=== PATIENT | female | born 1995 | race Caucasian/White ===

== ENCOUNTER 2022-01-30 16:36 | Emergency (ER) | payer BC, SELFPAY ==
[2022-01-30 16:37] VITALS: BP 133/96; PULSE 89; RESP 16; TEMP 37.2; O2SAT 97; BMI 35.4
[2022-01-30 16:40] VITALS: BP 133/96; PULSE 89; RESP 16; TEMP 37.2; O2SAT 97
--- NOTE | 2022-01-30 18:16 | CM.ED ---
Social Work Note Reason for Referral: Case Find, No PCP SW met with pt and introduced self. Pt is alert and orientated. Pt confirms she has no PCP, states she was going to one but wants to switch. SW provided pt with PCP list. Goldie Lang [employer], [employer]
--- NOTE | 2022-01-30 18:30 | EDS_ITS ---
HPI HPI - GI History of Present Illness Chief Complaint: Nausea/Vomiting Informant: patient Abdominal Pain/Flank Pain Onset: Today Context: Sudden Onset Timing: Intermittent Quality: Cramping and Sharp Location: Diffuse Worsened by: Nothing Relieved by: Nothing Nausea/Vomiting/Emesis GI Symptom: Positive for Nausea and Vomiting Diarrhea/Melena/Hematochezia GI Symptom: Positive for Diarrhea; Negative for Melena and Hematochezia Associated Symptoms Associated Symptoms: Negative for Dysuria, Frequency and Hematuria Narrative Narrative: Patient presents with nausea, vomiting, and abdominal pain that began today. Patient states she has been vomiting up undigested food and stomach contents. Patient denies any hematemesis or coffee-ground emesis. Patient admits to some watery diarrhea. Patient denies any melena or hematochezia. Patient admits to some cramping intermittent abdominal pain. Patient states it is diffuse in her abdomen. Patient states nothing makes it better nothing makes it worse. Patient denies any dysuria, hematuria, or frequency. Patient states her last menstrual period was 1 week ago. Patient also admits to smoking marijuana occasionally. [facility] Medical History Anxiety Arthritis Depression Patella fracture Polycystic ovarian syndrome Substance abuse Home Medications cephalexin 500 mg PO Q6 #20 capsule 01/30/22 [Rx Last Taken Unknown] trazodone 50 mg PO QHS 01/30/22 [History Last Taken Unknown] venlafaxine [Effexor] 75 mg PO DAILY 01/30/22 [History Last Taken Unknown] Allergy/AdvReac Type Severity Reaction Status Date / Time No Known Allergies Allergy Verified 01/30/22 16:40 Surgical History History of D&C Social History Smoking Status: Never smoker ROS ROS ED Constitutional Constitutional ED: Denies chills or fever(s) Eyes Eyes: Denies blurry vision or change in vision ENT ENT ED: Reports sore throat; Denies rhinorrhea Cardiovascular Cardiovascular: Denies chest pain or palpitations Respiratory/Chest Respiratory/Chest: Denies cough or dyspnea Gastrointestinal Gastrointestinal: Reports abdominal pain, diarrhea, nausea and vomiting Genitourinary Genitourinary ED: Denies dysuria or hematuria Musculoskeletal Musculoskeletal: Denies back pain or neck pain Integumentary Denies abscess or rash Neurologic Neurologic: Reports headache(s); Denies weakness Allergic/Immunologic Allergic/Immunologic ED: Denies mouth swelling or urticaria EXAM Physical Exam Const Vital Signs: 01/30/22 16:37 01/30/22 16:40 01/30/22 20:15 Temperature 99 F 99 F Temperature Source Temporal Temporal Pulse Rate 89 89 107 H Respiratory Rate 16 16 15 Blood Pressure 133/96 H 133/96 H 129/84 H Blood Pressure Mean 108 108 99 Pulse Ox 97 97 97 Oxygen Delivery Method Room Air Room Air Room Air Positive well nourished, well developed and obese General Appearance ED: well developed and NAD Nutritional Appearance: obese HEENT Reports moist mucous membranes Neck supple and no JVD Resp normal respiratory effort and clear to auscultation bilaterally Cardio regular rate and regular rhythm GI Auscultation: normoactive bowel sounds Palpation: soft and tender epigastric, LLQ, RLQ, LUQ, RUQ, periumbilical and suprapubic; Negative for guarding or rebound tenderness present Extremity full ROM General Extremety ED: Negative for edema General Extremity: Negative for edema Neuro CN's II-XII intact bilaterally, moves all extremities and no sensory deficits noted Sensorium / Orientation: alert, oriented to person, oriented to place and oriented to time Motor Exam: strength 5/5 throughout Psych mental status grossly normal MDM MDM MDM Narrative Medical decision making narrative: Patient was given IV fluids, morphine, and Zofran. CBC shows a mild leukocytosis of 14.1. Comprehensive metabolic profile was within normal limits. Lipase was normal. Serum hCG was negative. Urinalysis shows leukocyte esterase of 500 with 25-50 white blood cells and 3+ bacteria. There were positive nitrates. Urine culture was ordered. Patient was given a dose of Keflex here. Patient was given a prescription for Keflex. Patient was instructed to drink plenty of fluids. Patient was instructed to follow-up with her primary care physician in 3 to 5 days for reevaluation. Patient understood and was agreeable with the plan. All questions were answered. Lab Data Attestation: I reviewed the patient's lab results. Labs: Laboratory Results - last 24 hr 01/30/22 01/30/22 01/30/22 19:20 19:20 19:20 WBC 14.1 H RBC 5.22 Hgb 14.3 Hct 43.8 MCV 83.9 MCH 27.4 MCHC 32.6 RDW Std Deviation 40.8 RDW Coeff of Justo 13.2 Plt Count 301 MPV 10.4 Immature Gran % (Auto) 0.400 Neut % (Auto) 79.3 H Lymph % (Auto) 17.8 L [place] % (Auto) 2.3 Eos % (Auto) 0.1 Baso % (Auto) 0.1 Absolute Neuts (auto) 11.2 H Absolute Lymphs (auto) 2.51 Nucleated RBC % 0 Sodium 136 Potassium 4.6 Chloride 107 Carbon Dioxide 22.0 Anion Gap 7 BUN 7 Creatinine 0.66 Estim Creat Clear Calc 132.59 Est GFR (MDRD) Af Amer 140 Est GFR (MDRD) Non-Af 116 BUN/Creatinine Ratio 10.6 Glucose 93 Calcium 9.4 Total Bilirubin 0.30 AST 22 ALT 35 Alkaline Phosphatase 119 H Total Protein 8.2 Albumin 3.6 Globulin 4.6 H Albumin/Globulin Ratio 0.8 L Lipase 67 L Serum , Qual NEGATIVE Urine Color Urine Clarity Urine pH Ur Specific [place] Urine Protein Urine Glucose (UA) Urine Ketones Urine Occult Blood Urine Nitrite Urine Bilirubin Urine Urobilinogen Ur Leukocyte Esterase Urine RBC Urine WBC Ur Squamous Epith Cells Urine Bacteria Urine Mucus 01/30/22 19:34 WBC RBC Hgb Hct MCV MCH MCHC RDW Std Deviation RDW Coeff of [place] Plt Count MPV Immature Gran % (Auto) Neut % (Auto) Lymph % (Auto) [place] % (Auto) Eos % (Auto) Baso % (Auto) Absolute Neuts (auto) Absolute Lymphs (auto) Nucleated RBC % Sodium Potassium Chloride Carbon Dioxide Anion Gap BUN Creatinine Estim Creat Clear Calc Est GFR (MDRD) Af Amer Est GFR (MDRD) Non-Af BUN/Creatinine Ratio Glucose Calcium Total Bilirubin AST ALT Alkaline Phosphatase Total Protein Albumin Globulin Albumin/Globulin Ratio Lipase Serum , Qual Urine Color Yellow Urine Clarity Cloudy Urine pH 6.0 Ur Specific [place] 1.015 Urine Protein 15 H Urine Glucose (UA) Normal Urine Ketones Negative Urine Occult Blood 10 H Urine Nitrite Positive H Urine Bilirubin Negative Urine Urobilinogen Normal Ur Leukocyte Esterase 500 H Urine RBC 0 SEEN Urine WBC 25-50 SEEN Ur Squamous Epith Cells 5-10 SEEN Urine Bacteria 3+ Urine Mucus 0 SEEN Discharge Plan Triage Chief Complaint: Nausea/Vomiting ED Provider: Vamshi Darby Dx/Rx/DC Orders Clinical Impression: Urinary tract infection, Abdominal pain Instructions: ED CYSTITIS Female Adult Prescriptions: New cephalexin [cephalexin] 500 MG capsule 500 mg PO Q6 Qty: 20 RF: 0 No Action venlafaxine [Effexor] 75 mg Tablet 75 mg PO DAILY RF: 0 trazodone 50 mg Tablet 50 mg PO QHS RF: 0 Primary Care Provider: Care Physician,No Primary Referrals: Lynn Toro MD [STAFF PHYSICIAN] - 3-5 Days Care Physician,No Primary [Primary Care Provider] - Disposition Disposition: Home, Self Care
[2022-01-30] MEDS: 0.9% Normal Saline 1,000 ML 1000 ML IV (19:24)
[2022-01-30] MEDS: Ondansetron 4 MG/2 ML Vial IV (19:25)
[2022-01-30 19:30] LABS: Absolute Lymphocyte Count 2.51 X10^3/uL (0.83-4.51); Absolute Neutrophil Count 11.2 X10^3/uL (2.0-7.7); Basophil# 0.02 X10^3/uL; Basophil% 0.1 % (0-1); Eosinophil# 0.01 X10^3/uL; Eosinophils% 0.1 % (0-5); Hematocrit 43.8 % (37-47); Hemoglobin 14.3 g/dL (12.0-15.0); Lymphocyte # 2.51 X10^3/ul (0.83-4.51); Lymphocyte % 17.8 % (19-41); Mean Corp Hgb Conc 32.6 g/dL (32-36); Mean Corpuscular Hgb 27.4 pg (27.0-32.0); Mean Corpuscular Volume 83.9 fL (81-99); Mean Platelet Vol. 10.4 fl (6.2-12.0); Monocyte# 0.32 X10^3/uL; Monocyte% 2.3 % (0-10); NRBC Flagged by Analyzer 0 % (0-5); Neutrophil # 11.18 X10^3/uL (2.7-7.7); Neutrophil % 79.3 % (47-70); Platelet Count 301 K/mm3 (150-450); RBC Distribution Width CV 13.2 % (11.6-14.6); RBC Distribution Width SD 40.8 fl (35.1-43.9); Red Blood Count 5.22 M/mm3 (4.2-5.4); White Blood Count 14.1 K/mm3 (4.4-11.0)
[2022-01-30 19:39] LABS: Internal QC Validated? YES +Cl - CLEAR BKGD; Pregnancy, Serum, hCG Quali. NEGATIVE Negative
[2022-01-30 19:46] LABS: ALB/GLOB Ratio 0.8 RATIO (0.9-2.4); AST(SGOT) 22 U/L (15-37); Alanine Aminotransfer ALT/SGPT 35 U/L (13-56); Albumin, Serum 3.6 g/dL (3.2-5.0); Alkaline Phosphatase 119 U/L (45-117); Anion Gap 7 (5-15); BUN 7 mg/dL (7-18); BUN/Creat Ratio 10.6 RATIO (10-20); Calcium,Total 9.4 mg/dL (8.5-10.1); Chloride 107 mmol/L (98-107); Creatinine, Serum 0.66 mg/dL (0.55-1.02); EST Glomerular Filtration Rate 116 mL/min (>60); Est Glom Filt Rate - Afr Amer 140 mL/min (>60); Estimated Creatinine Clearance 132.59 ml/min; Globulin 4.6 g/dL (2.2-4.2); Glucose 93 mg/dL (74-106); Lipase 67 U/L (73-393); Potassium 4.6 mmol/L (3.5-5.1); Protein, Total 8.2 g/dL (6.4-8.2); Sodium Level 136 mmol/L (136-145)
[2022-01-30 19:56] LABS: Mucous, Urine 0 SEEN /hpf (<or=2+); Red Blood Cells-Urine 0 SEEN /hpf (0-5)
[2022-01-30 20:02] LABS: Color, Urine Yellow (Yellow); Glucose, Dipstick Normal (Normal); Ketone-Dipstick Negative (Negative); Leukocyte Esterase-Dipstick 500 /ul (Negative); Nitrite-Dipstick Positive (Negative); Occult Blood-Urine 10 /ul (Negative); Protein-Dipstick 15 mg/dl (Negative); Specific Gravity, Urine 1.015 (1.002-1.030); Urine Bilirubin Dipstick Negative (Negative); Urine Clarity Cloudy (Clear); Urine Urobilinogen Normal (Normal)
[2022-01-30 20:08] LABS: White Blood Cells 25-50 SEEN /hpf (0-5)
[2022-01-30 20:09] LABS: Bacteria 3+ /hpf (None Seen); Squamous Epithelial Cells - UA 5-10 SEEN /hpf (5-10)
[2022-01-30 20:15] VITALS: BP 129/84; PULSE 107; RESP 15; O2SAT 97
[2022-01-30] MEDS: Cephalexin 500 MG Capsule PO (20:50)
== END 2022-01-30 20:55 | disposition home or self-care (01) ==
PROVIDERS: Emergency Provider Emergency Medicine; Visit Provider Emergency Medicine
DX: N39.0 Urinary tract infection, site not specified (principal); R11.2 Nausea with vomiting, unspecified; R19.7 Diarrhea, unspecified; R10.84 Generalized abdominal pain; F32.A Depression, unspecified; F41.9 Anxiety disorder, unspecified; M19.90 Unspecified osteoarthritis, unspecified site; E66.9 Obesity, unspecified; Z79.899 Other long term (current) drug therapy
CPT/HCPCS: 80053; 81001; 83690; 84703; 85025; 87077; 87086; 87088; 87186; 96361; 96374; 96375; 99284; J7030; A4216; J2405

== ENCOUNTER → 2022-03-13 | Outpatient (CLI) | payer BC, SELFPAY ==
[2022-03-13 12:52] LABS: Erythrocyte Sedimentation Rate 22 mm/hr (0-30)
[2022-03-13 12:54] LABS: Absolute Lymphocyte Count 2.49 X10^3/uL (0.83-4.51); Absolute Neutrophil Count 4.8 X10^3/uL (2.0-7.7); Basophil# 0.02 X10^3/uL; Basophil% 0.3 % (0-1); Eosinophil# 0.09 X10^3/uL; Eosinophils% 1.2 % (0-5); Hematocrit 39.6 % (37-47); Hemoglobin 12.6 g/dL (12.0-15.0); Lymphocyte # 2.49 X10^3/ul (0.83-4.51); Lymphocyte % 32.2 % (19-41); Mean Corp Hgb Conc 31.8 g/dL (32-36); Mean Corpuscular Hgb 26.8 pg (27.0-32.0); Mean Corpuscular Volume 84.1 fL (81-99); Monocyte# 0.36 X10^3/uL; Monocyte% 4.7 % (0-10); NRBC Flagged by Analyzer 0 % (0-5); Neutrophil # 4.75 X10^3/uL (2.7-7.7); Neutrophil % 61.3 % (47-70); Platelet Count 307 K/mm3 (150-450); RBC Distribution Width SD 43.3 fl (35.1-43.9); Red Blood Count 4.71 M/mm3 (4.2-5.4); White Blood Count 7.7 K/mm3 (4.4-11.0)
[2022-03-13 13:24] LABS: ALB/GLOB Ratio 0.8 RATIO (0.9-2.4); AST(SGOT) 26 U/L (15-37); Alanine Aminotransfer ALT/SGPT 45 U/L (13-56); Albumin, Serum 3.5 g/dL (3.2-5.0); Alkaline Phosphatase 112 U/L (45-117); Anion Gap 8 (5-15); BUN 6 mg/dL (7-18); BUN/Creat Ratio 9.8 RATIO (10-20); CRP 6.34 mg/L (0.0-3.0); Calcium,Total 8.9 mg/dL (8.5-10.1); Chloride 105 mmol/L (98-107); Creatinine, Serum 0.61 mg/dL (0.55-1.02); EST Glomerular Filtration Rate 127 mL/min (>60); Est Glom Filt Rate - Afr Amer 153 mL/min (>60); Ferritin 19 ng/mL (8-252); Globulin 4.2 g/dL (2.2-4.2); Glucose 93 mg/dL (74-106); Iron 30 ug/dL (50-170); Iron Binding Capacity,Total 368 ug/dL (250-450); Potassium 3.9 mmol/L (3.5-5.1); Protein, Total 7.7 g/dL (6.4-8.2); Rheumatoid Factor < 10.0 IU/mL (<15); Sodium Level 138 mmol/L (136-145)
[2022-03-13 13:56] LABS: Hemoglobin A1c 4.7 % (3.8-5.6)
[2022-03-18 04:07] LABS: Beef <0.10 kU/L (Class 0); Chocolate <0.10 kU/L (Class 0); Corn <0.10 kU/L (Class 0); Egg, Whole <0.10 kU/L (Class 0); Milk (Cow) <0.10 kU/L (Class 0); Peanut <0.10 kU/L (Class 0); Pork <0.10 kU/L (Class 0); Soybean <0.10 kU/L (Class 0); Wheat <0.10 kU/L (Class 0)
[2022-03-18 08:41] LABS: ANTINUCLEAR ANTIBODIES DIRECT Negative (Negative)
== END | disposition home or self-care (01) ==
LOC: MFPLAB 10:38
PROVIDERS: Visit Provider Family Medicine
DX: M25.50 Pain in unspecified joint (principal); N92.0 Excessive and frequent menstruation with regular cycle; R10.13 Epigastric pain; Z91.018 Allergy to other foods
CPT/HCPCS: 36415; 80053; 82728; 83036; 83540; 83550; 85025; 85652; 86003; 86005; 86038; 86140; 86431

== ENCOUNTER → 2022-03-29 | Outpatient (CLI) | payer BC, SELFPAY ==
--- NOTE | 2022-03-29 10:31 | NM_ITS ---
CLINICAL: Early satiety with nausea and vomiting GASTRIC EMPTYING-SULFUR COLLOID TECHNIQUE: The patient was orally administered 1.1 mCi of Tc-sulfur colloid in oatmeal. Gamma camera imaging acquisitions at 1-60 minutes post radiopharmaceutical administration was performed. COMPARISON STUDIES : NM - None. CR - Not available for review at this time. CT - Not available for review at this time. MR - Not available for review at this time. FINDINGS: There is normal filling and emptying of the stomach. No gastroesophageal reflux with normal passage into the small bowel. T 1/2 measures 45 minutes, within normal limits. NM/Gastric Emptying Study IMPRESSION: Normal gastric emptying nuclear medicine scan. Electronically Signed: Mario Soliman MD ([place]) at 12:27 EDT ,
== END | disposition home or self-care (01) ==
LOC: NM 10:30
PROVIDERS: PCP Family Medicine; Referring Provider Family Medicine; Visit Provider Family Medicine
DX: R68.81 Early satiety (principal)
CPT/HCPCS: 78264; A9541

== ENCOUNTER → 2022-04-27 | Outpatient (CLI) | payer BC, SELFPAY ==
--- NOTE | 2022-04-27 11:48 | RAD_ITS ---
INDICATION: PAIN EXAMINATION/TECHNIQUE: X-RAY - RIGHT XR Shoulder Min 2 Views 4 VIEWS COMPARISON: None. FINDINGS: SOFT TISSUES: No soft tissue swelling or gas. No radiopaque foreign body. BONES/JOINTS: No acute fracture or subluxation.. Normal alignment. Preservation of the joint space.. No sclerotic or destructive changes observed. RAD/Shoulder min 2 Views IMPRESSION: Unremarkable right shoulder x-ray. Electronically Signed: Godfrey Cash MD at 12:48 EDT ,
--- NOTE | 2022-04-27 11:48 | RAD_ITS ---
INDICATION: PAIN EXAMINATION/TECHNIQUE: X-RAY - LEFT XR Shoulder Min 2 Views 4 VIEWS COMPARISON: None. FINDINGS: SOFT TISSUES: No soft tissue swelling or gas. No radiopaque foreign body. BONES/JOINTS: No acute fracture or subluxation.. Normal alignment. Preservation of the joint space.. No sclerotic or destructive changes observed. RAD/Shoulder min 2 Views IMPRESSION: Unremarkable left shoulder x-ray.. Electronically Signed: Godfrey Cash MD at 12:48 EDT ,
--- NOTE | 2022-04-27 11:49 | RAD_ITS ---
INDICATION: NECK PAIN EXAMINATION/TECHNIQUE: X-RAY - XR Spine Cervical 4 or 5 Views COMPARISON: None. FINDINGS: VERTEBRAE: Preserved vertebral body height. No fracture. No spondylolisthesis. Preservation of the normal cervical lordosis. No significant facet arthropathy. DISCS: Disc spaces are maintained. NECK SOFT TISSUES: No prevertebral soft tissue widening. LUNG APICES: Clear. RAD/Cerv Spine 4 or 5 Views IMPRESSION: No evidence of acute fracture or spondylolisthesis. Electronically Signed: Godfrey Cash MD at 12:56 EDT ,
--- NOTE | 2022-04-27 11:49 | RAD_ITS ---
INDICATION: LOW BACK PAIN EXAMINATION/TECHNIQUE: X-RAY - XR Spine Lumbar Min 4 Views COMPARISON: None. FINDINGS: Unremarkable alignment of the columns of the lumbar spine is visualized, the lumbar vertebral bodies demonstrate unremarkable contours, no evidence of compression deformity is seen. No evidence of spondylolisthesis is visualized. No evidence of fracture or traumatic subluxation. Mild degenerative endplate changes are visualized. Mild decreased intervertebral disc height visualized most prominent at L3-L4. Oblique images demonstrate no evidence of pars interarticularis fracture. Increased density visualized in the posterior column consistent with hypertrophic changes in the facet joints most prominent at L5 and L4. Included bowel gas pattern is non-obstructive. RAD/L/S Spine Min 4 Views IMPRESSION: Degenerative changes of the lumbar spine. No evidence of lumbar spinal fracture or spondylolisthesis. Electronically Signed: Godfrey Cash MD at 12:55 EDT ,
[2022-04-27 15:10] LABS: Absolute Lymphocyte Count 2.33 X10^3/uL (0.83-4.51); Absolute Neutrophil Count 4.4 X10^3/uL (2.0-7.7); Basophil# 0.01 X10^3/uL; Basophil% 0.1 % (0-1); Hematocrit 40.9 % (37-47); Hemoglobin 13.3 g/dL (12.0-15.0); Lymphocyte # 2.33 X10^3/ul (0.83-4.51); Lymphocyte % 32.2 % (19-41); Mean Corp Hgb Conc 32.5 g/dL (32-36); Mean Corpuscular Hgb 27.4 pg (27.0-32.0); Mean Corpuscular Volume 84.3 fL (81-99); Monocyte# 0.44 X10^3/uL; Monocyte% 6.1 % (0-10); NRBC Flagged by Analyzer 0 % (0-5); Neutrophil # 4.44 X10^3/uL (2.7-7.7); Neutrophil % 61.5 % (47-70); Platelet Count 305 K/mm3 (150-450); RBC Distribution Width CV 13.7 % (11.6-14.6); RBC Distribution Width SD 41.9 fl (35.1-43.9); Red Blood Count 4.85 M/mm3 (4.2-5.4); White Blood Count 7.2 K/mm3 (4.4-11.0)
[2022-04-27 15:37] LABS: Ferritin 38 ng/mL (8-252); Iron 34 ug/dL (50-170); Iron Binding Capacity,Total 353 ug/dL (250-450)
== END | disposition home or self-care (01) ==
LOC: MTLAB 11:46
PROVIDERS: PCP Family Medicine; Referring Provider Family Medicine; Visit Provider Family Medicine
DX: M25.551 Pain in right hip (principal); M54.50 Low back pain, unspecified; M54.2 Cervicalgia; E61.1 Iron deficiency
CPT/HCPCS: 36415; 72050; 72110; 73030; 82728; 83540; 83550; 85025

== ENCOUNTER → 2022-06-13 | Outpatient (CLI) | payer BC, SELFPAY ==
[2022-06-13 15:16] LABS: Absolute Lymphocyte Count 4.02 X10^3/uL (0.83-4.51); Absolute Neutrophil Count 5.9 X10^3/uL (2.0-7.7); Basophil# 0.02 X10^3/uL; Basophil% 0.2 % (0-1); Hemoglobin 12.4 g/dL (12.0-15.0); Lymphocyte # 4.02 X10^3/ul (0.83-4.51); Lymphocyte % 38.1 % (19-41); Mean Corpuscular Volume 87.1 fL (81-99); Mean Platelet Vol. 10.6 fl (6.2-12.0); Monocyte# 0.61 X10^3/uL; Monocyte% 5.8 % (0-10); NRBC Flagged by Analyzer 0 % (0-5); Neutrophil # 5.88 X10^3/uL (2.7-7.7); Neutrophil % 55.7 % (47-70); Platelet Count 340 K/mm3 (150-450); RBC Distribution Width CV 14.2 % (11.6-14.6); RBC Distribution Width SD 44.8 fl (35.1-43.9); Red Blood Count 4.59 M/mm3 (4.2-5.4); White Blood Count 10.6 K/mm3 (4.4-11.0)
[2022-06-13 15:32] LABS: Ferritin 30 ng/mL (8-252); Iron 29 ug/dL (50-170); Iron Binding Capacity,Total 346 ug/dL (250-450)
== END | disposition home or self-care (01) ==
LOC: MFPLAB 11:35
PROVIDERS: PCP Family Medicine; Referring Provider Family Medicine; Visit Provider Family Medicine
DX: E61.1 Iron deficiency (principal)
CPT/HCPCS: 36415; 82728; 83540; 83550; 85025